=== PATIENT | female | born 1950 | race Caucasian/White ===

== ENCOUNTER → 2017-08-20 | Outpatient (CLI) | payer OTHER, BC ==
[~2017-08-20] MED LIST: COMPAZINE10 MG PO; LEVO-T50 MCG PO; ZUPLENZ8 MG PO
== END | disposition home or self-care (01) ==
LOC: AMB 10:30
DX: Z45.2 Encounter for adjustment and management of vascular access device (principal); I87.8 Other specified disorders of veins; Z92.21 Personal history of antineoplastic chemotherapy